=== PATIENT | female | born 2005 | race Caucasian/White ===

== ENCOUNTER 2024-02-06 09:01 | Inpatient (IN) | payer MEDICAID ==
[2024-02-06] MEDS ORDERED: Misoprostol 200 MCG Tab PO PRN (09:25)
[2024-02-06] MEDS ORDERED: Methylergonovine 0.2 MG/1 ML Amp IM PRN (09:25)
[2024-02-06] MEDS ORDERED: Carboprost Tromethamine 250 MCG/1 mL Vial IM PRN (09:25)
[2024-02-06] MEDS ORDERED: Sodium Chloride 0.9% 10 ML Syringe FLUSH PRN (09:25)
[2024-02-06] MEDS ORDERED: Sodium Chloride 0.9% 20 ML SDV IV PRN (09:25)
[2024-02-06] MEDS ORDERED: Water For Irrigation,Sterile 1,000 ML Container IRR PRN (09:25)
[2024-02-06] MEDS ORDERED: Sodium Chloride 0.9% 2.5 ML Syringe FLUSH PRN (09:25)
[2024-02-06] MEDS ORDERED: Tranexamic Acid IN NACL,ISO-OS 1,000 MG in Premix Bag 1 BAG IV PRN (09:25)
[2024-02-06] MEDS ORDERED: Misoprostol 25 MCG (1/4 of 100 MCG) Tab VAG PRN (09:25)
[2024-02-06] MEDS ORDERED: Lidocaine 1% 50 ML MDV INJECT PRN (09:25)
[2024-02-06] MEDS ORDERED: Terbutaline 1 MG/ML SDV SUBCUT PRN (09:25)
[2024-02-06] MEDS ORDERED: Oxytocin/0.9 % Sodium Chloride 30 UNIT/500 ML BAG IV SCH (09:30)
[2024-02-06] MEDS: Lactated Ringers 1,000 ML IV SCH (10:00)
[2024-02-06] MEDS ORDERED: Ampicillin 1 GM Vial IM SCH (10:00)
[2024-02-06 10:15] LABS: HEMATOCRIT 38.7 % (37.0-47.0); HEMOGLOBIN 13.2 g/dL (12.0-16.0); MEAN CORPUSCULAR HEMOGLOBIN 28.6 pg (28.0-32.0); MEAN CORPUSCULAR HGB CONC 34.1 g/dL (32.0-36.0); MEAN CORPUSCULAR VOLUME 83.9 fL (83.0-99.0); MEAN PLATELET VOLUME 11.4 fL (9.4-12.3); PLATELET COUNT,PLT 215 K/uL (150-400); RED BLOOD CELL COUNT 4.61 M/uL (4.10-5.30)
[2024-02-06] MEDS: Ampicillin 2 GM in Sodium Chloride 0.9% 100 ML IV ONE (10:19)
[2024-02-06] MEDS: Misoprostol 25 MCG (1/4 of 100 MCG) Tab VAG PRN (10:33)
[2024-02-06] MEDS ORDERED: ePHEDrine 50 MG/ML SDV IVPUSH PRN ×2 (11:15)
[2024-02-06] MEDS: Ampicillin 1 GM in Sodium Chloride 0.9% 50 ML IV SCH (14:19)
[2024-02-06] MEDS: Butorphanol 2 MG/ML SDV IVPUSH PRN (15:49)
[2024-02-06] MEDS: Ropivacaine HCl/PF 400 MG in Premix Bag 1 BAG EPIDUR SCH (20:07)
[2024-02-06] MEDS ORDERED: dexmedeTOMIDine HCl 200 MCG/2 ML SDV ONE (20:10)
[2024-02-06] MEDS: Oxytocin/0.9 % Sodium Chloride 30 UNIT/500 ML BAG IV SCH (21:10)
[2024-02-06] MEDS: Phenylephrine HCl In 0.9% NaCl 1 MG/10 ML Syringe IVPUSH PRN (22:50)
[2024-02-07] MEDS: Ondansetron 4 MG/2 ML SDV IVPUSH PRN (05:34)
[2024-02-07] MEDS ORDERED: Docusate Sodium 100 MG Cap PO PRN (09:08)
[2024-02-07] MEDS ORDERED: oxyCODONE 5 MG Tab PO PRN (09:08)
[2024-02-07 10:13] LABS: PH,UMBILICAL ARTERIAL 7.188 (7.18-7.38); PH,UMBILICAL VENOUS 7.254 (7.25-7.45)
[2024-02-07] MEDS: Ibuprofen 800 MG Tab PO PRN (11:04)
[2024-02-07] MEDS: Benzocaine/Menthol 20%-0.5% Spray 78 GM Cannister TOP PRN (11:06)
[2024-02-07] MEDS: Lanolin 100% Cream 7 GM Tube TOP PRN (11:06)
[2024-02-07] MEDS: Witch Hazel Medicated Pads 40/Jar TOP PRN (11:07)
[2024-02-07] MEDS: Acetaminophen 500 MG Tab PO PRN (21:12)
[2024-02-08 06:44] LABS: HEMATOCRIT 28.6 % (37.0-47.0); HEMOGLOBIN 9.4 g/dL (12.0-16.0)
[2024-02-08] MEDS ORDERED: Ferrous Sulfate 325 MG Tab PO SCH (08:00)
== END 2024-02-08 14:40 | disposition home or self-care (01) | DRG 806 ==
LOC: MW.OB 09:01 → OBSVTOIN 02-07 09:08 → MW.OB 02-07 13:00
PROVIDERS: ADMIT Obstetrics & Gynecology; ATTEND Obstetrics & Gynecology
PROC: 10E0XZZ Delivery of Products of Conception, External Approach (ICD-10-PCS; principal; 2024-02-08)
PROC: 0KQM0ZZ Repair Perineum Muscle, Open Approach (ICD-10-PCS; 2024-02-08)
PROC: 3E0P7VZ Introduction of Hormone into Female Reproductive, Via Natural or Artificial Opening (ICD-10-PCS; 2024-02-08)
DX: O48.0 Post-term pregnancy (principal); D62 Acute posthemorrhagic anemia; Z37.0 Single live birth; O99.824 Streptococcus B carrier state complicating childbirth; O90.81 Anemia of the puerperium; Z3A.41 41 weeks gestation of pregnancy; O70.1 Second degree perineal laceration during delivery; O76 Abnormality in fetal heart rate and rhythm complicating labor and delivery; O77.0 Labor and delivery complicated by meconium in amniotic fluid
CPT/HCPCS: 01967; 36415; 51702; 59025; 59409; 82803; 85014; 85018; 85027; 86592; 86850; 86900; 86901; A9270-GY; J0290; J0595; J2371; J2405; J2590; J2795; J3490; J7120

== ENCOUNTER 2025-02-11 14:43 | Inpatient (IN) | payer MEDICAID ==
[2025-02-11] MEDS ORDERED: ePHEDrine 50 MG/ML SDV IVPUSH PRN (20:12)
[2025-02-11] MEDS ORDERED: Phenylephrine HCl In 0.9% NaCl 1 MG/10 ML Syringe IVPUSH PRN (20:12)
[2025-02-11] MEDS ORDERED: dexmedeTOMIDine HCl 200 MCG/2 ML SDV EPIDUR SCH (20:15)
[2025-02-11] MEDS ORDERED: Misoprostol 200 MCG Tab PO PRN (20:36)
[2025-02-11] MEDS ORDERED: Sodium Chloride 0.9% 10 ML Syringe FLUSH PRN (20:36)
[2025-02-11] MEDS ORDERED: Carboprost Tromethamine 250 MCG/1 mL Vial IM PRN (20:36)
[2025-02-11] MEDS ORDERED: Ondansetron 4 MG/2 ML SDV IVPUSH PRN (20:36)
[2025-02-11] MEDS ORDERED: Terbutaline 1 MG/ML SDV SUBCUT PRN (20:36)
[2025-02-11] MEDS ORDERED: Sodium Chloride 0.9% 2.5 ML Syringe FLUSH PRN (20:36)
[2025-02-11] MEDS ORDERED: Water For Irrigation,Sterile 1,000 ML Container IRR PRN (20:36)
[2025-02-11] MEDS ORDERED: Lidocaine 1% 50 ML MDV INJECT PRN (20:36)
[2025-02-11] MEDS ORDERED: Sodium Chloride 0.9% 20 ML SDV IV PRN (20:36)
[2025-02-11] MEDS ORDERED: Butorphanol 1 MG/ML SDV IVPUSH PRN (20:36)
[2025-02-11] MEDS ORDERED: Misoprostol 200 MCG Tab RECTAL PRN (20:36)
[2025-02-11] MEDS: Ampicillin 2 GM in Sodium Chloride 0.9% 100 ML IV ONE (21:28)
[2025-02-11] MEDS: Lactated Ringers 1,000 ML IV SCH (21:28)
[2025-02-11 21:43] LABS: HEMATOCRIT 32.5 % (37.0-47.0); HEMOGLOBIN 10.4 g/dL (12.0-16.0); MEAN CORPUSCULAR HEMOGLOBIN 24.5 pg (28.0-32.0); MEAN CORPUSCULAR VOLUME 76.7 fL (83.0-99.0); MEAN PLATELET VOLUME 11.7 fL (9.4-12.3); PLATELET COUNT,PLT 205 K/uL (150-400); RED BLOOD CELL COUNT 4.24 M/uL (4.10-5.30); WHITE BLOOD CELL COUNT,WBC 10.71 K/uL (3.9-11.3)
[2025-02-11] MEDS: Oxytocin/0.9 % Sodium Chloride 30 UNIT/500 ML BAG IV SCH (22:46)
[2025-02-12] MEDS: Ampicillin 1 GM in Sodium Chloride 0.9% 50 ML IV SCH (01:47)
[2025-02-12] MEDS: Ropivacaine HCl/PF 400 MG in Premix Bag 1 BAG EPIDUR SCH (09:02)
[2025-02-12] MEDS: Oxytocin/0.9 % Sodium Chloride 30 UNIT/500 ML BAG IV SCH (14:44)
[2025-02-12] MEDS: Tranexamic Acid in NACL,ISO-OS 1,000 MG in Premix Bag 1 BAG IV PRN (14:52)
[2025-02-12] MEDS: Methylergonovine 0.2 MG/1 ML Amp IM PRN (14:54)
[2025-02-12] MEDS: Ondansetron 4 MG/2 ML SDV ONE (15:37)
[2025-02-12 15:44] LABS: PH,UMBILICAL ARTERIAL 7.326 (7.18-7.38)
[2025-02-12 15:45] LABS: PH,UMBILICAL VENOUS 7.407 (7.25-7.45)
[2025-02-12] MEDS: Benzocaine/Menthol 20%-0.5% Spray 78 GM Cannister TOP PRN (16:37)
[2025-02-12] MEDS: Witch Hazel Medicated Pads 40/Jar TOP PRN (16:37)
[2025-02-12] MEDS: Acetaminophen 500 MG Tab PO PRN (16:37)
[2025-02-12] MEDS: Lanolin 100% Cream 7 GM Tube TOP PRN (16:37)
[2025-02-12] MEDS: Docusate Sodium 100 MG Cap PO PRN (16:38)
[2025-02-12] MEDS: Ibuprofen 800 MG Tab PO PRN (17:20)
[2025-02-13 06:18] LABS: HEMATOCRIT 27.9 % (37.0-47.0); HEMOGLOBIN 8.5 g/dL (12.0-16.0)
[2025-02-13] MEDS ORDERED: Iron Polysaccharides Complex 150 MG Cap ONE (09:10)
[2025-02-13] MEDS: Iron Polysaccharides Complex 150 MG Cap PO SCH (09:13)
== END 2025-02-13 16:50 | disposition home or self-care (01) | DRG 807 ==
LOC: MW.OB 14:43 → OBSVTOIN 02-12 14:43 → MW.OB 02-12 18:30
PROVIDERS: ADMIT Obstetrics & Gynecology; ATTEND Obstetrics & Gynecology
PROC: 10E0XZZ Delivery of Products of Conception, External Approach (ICD-10-PCS; principal; 2025-02-12)
PROC: 0KQM0ZZ Repair Perineum Muscle, Open Approach (ICD-10-PCS; 2025-02-12)
PROC: 10907ZC Drainage of Amniotic Fluid, Therapeutic from Products of Conception, Via Natural or Artificial Opening (ICD-10-PCS; 2025-02-12)
PROC: 3E0R3BZ Introduction of Anesthetic Agent into Spinal Canal, Percutaneous Approach (ICD-10-PCS; 2025-02-12)
PROC: 00HU33Z Insertion of Infusion Device into Spinal Canal, Percutaneous Approach (ICD-10-PCS; 2025-02-12)
DX: O99.824 Streptococcus B carrier state complicating childbirth (principal); Z37.0 Single live birth; O70.1 Second degree perineal laceration during delivery; O26.893 Other specified pregnancy related conditions, third trimester; O99.02 Anemia complicating childbirth; O99.334 Smoking (tobacco) complicating childbirth; F17.210 Nicotine dependence, cigarettes, uncomplicated; Z67.41 Type O blood, Rh negative; Z3A.39 39 weeks gestation of pregnancy
CPT/HCPCS: 01967; 36415; 51702; 59025; 59409; 82803; 85014; 85018; 85027; 86592; 86850; 86900; 86901; A9270-GY; J0290; J2210; J2405; J2590; J2795; J7120